=== PATIENT | female | born 1945 | race Caucasian/White ===

== ENCOUNTER 2016-10-29 09:12 | Emergency (ER) | payer MEDICARE, OTHER ==
[~2016-10-29] VITALS: Ht 157.5 cm; Wt 68.0 kg
[~2016-10-29 09:12] MED LIST: ATEN-51 PO
[2016-10-29 09:19] VITALS: Ht 157.5 cm; Wt 68.0 kg
[2016-10-29] MEDS ORDERED: CIPR7.5D4 LEFT EAR (09:57)
--- NOTE | 2016-10-29 10:45 | ERD ---
ER Documentation Chief Complaint Date/Time DATE: 10/29/16 TIME: 10:41 Chief Complaint PT WITH l EAR PAIN X 15 DAYS, NO FEVER. HPI 71-year-old female coming in complaining of left ear pain 2 weeks. Pain is constant. Denies fever. Has never had this before. Has not used any medications for the symptoms. Does not have any bleeding or drainage from her left ear. Denies nasal congestion. Medical history: Cardiac hypertrophy, hypertension NKDA Surgical history: Nasoplasty ROS All systems reviewed and are negative except as per history of present illness. Medications Home Meds Active Scripts Ciprofloxacin Hcl/Dexameth (Ciprodex Otic Suspension) 7.5 Ml Drops.susp, 4 DROP LEFT EAR BID for 7 Days, EA Prov:SADE ALTAMIRANO PA-C 10/29/16 Reported Medications Atenolol* (Atenolol*) 25 Mg Tablet, 25 MG PO DAILY 04/20/13 Allergies Allergies: Coded Allergies: No Known Allergy (Unverified , 10/29/16) PMhx/Soc History of Surgery: Yes (COLON SX, BTL, GALL BLADDER) Anesthesia Reaction: No Hx Neurological Disorder: No Hx Respiratory Disorders: No Hx Cardiac Disorders: No Hx Psychiatric Problems: No Hx Miscellaneous Medical Probl: No Hx Alcohol Use: No Hx Substance Use: No Hx Tobacco Use: No Smoking Status: Never smoker Physical Exam Vitals Vital Signs Date Time Temp Pulse Resp B/P Pulse Ox O2 Delivery O2 Flow Rate FiO2 10/29/16 09:19 97.5 70 14 160/72 99 Physical Exam GENERAL: The patient is well-appearing, well-nourished, in no acute distress HEENT: Atraumatic. Conjunctivae are pink. Pupils equal, round, and reactive to light. There is no scleral icterus. Tympanic membranes clear bilaterally. Oropharynx clear. No nystagmus or photophobia. Positive tragal tenderness. NECK: C-spine is soft and supple. There is no meningismus. There is no cervical lymphadenopathy. No JVD. No bruits. No goiter. CHEST: Clear to auscultation bilaterally. There are no rales, wheezes or rhonchi. HEART: Regular rate and rhythm. No murmurs, clicks, rubs or gallops. No S3 or S4. Procedures/MDM MDM: 71-year-old female complaining of left ear pain. Patient's exam is not concerning however she does have tragal tenderness. I have low treat for possible early otitis externa. I will suspicion for otitis media. I have low suspicion for mastoiditis. I have low suspicion for retained foreign body or perfect TM. Patient will be discharged with medication and recommended follow- up with primary doctor in 1-2 days for close evaluation. Patient still symptoms change or worsen to return to the ER. All the questions at the time of discharge Departure Diagnosis: Primary Impression: Left ear pain Condition: Stable Patient Instructions: Understanding Outer Ear Problems Referrals: YONIS ELLISON (PCP) Additional Instructions: FOLLOW UP WITH YOUR PRIMARY CARE PHYSICIAN TOMORROW.Return to this facility if you are not improving as expected. SADE ALTAMIRANO PA-C Oct 29, 2016 10:45
== END 2016-10-29 10:12 | disposition home or self-care (01) ==
LOC: FTE 09:12
DX: H92.02 Otalgia, left ear (principal); I10 Essential (primary) hypertension
CPT/HCPCS: 99283

== ENCOUNTER 2017-03-07 09:48 | Emergency (ER) | payer MEDICARE, OTHER ==
[~2017-03-07] VITALS: Ht 160 cm; Wt 69.0 kg
[~2017-03-07 09:48] MED LIST changes: +CIPR7.5D4 LEFT EAR
[2017-03-07 09:51] VITALS: Ht 160 cm; Wt 69.0 kg
[2017-03-07 11:23] LABS: URINE BLOOD (Dip) POC 2+ (NEGATIVE)
[2017-03-07] MEDS ORDERED: FAMOTIDINE 20 MG INJ IV STA (11:32)
[2017-03-07] MEDS ORDERED: METHYLPREDNISOLONE 125 MG INJ IV STA (11:32)
[2017-03-07] MEDS ORDERED: DIPHENHYDRAMINE 50 MG INJ IV STA (11:32)
[2017-03-07] MEDS ORDERED: BENZ30CR2 TP (11:38)
--- NOTE | 2017-03-07 11:45 | ERD ---
ER Documentation Chief Complaint Chief Complaint VAGINAL ITCHING X 3 DAYS HPI Patient is a 71-year-old female presents ED for concerns of vaginal dryness and itching 3 days. Patient reports bilateral labile itching and dryness. Patient denies using any new creams or products. She denies any vaginal bleeding or excessive vaginal discharge. Patient denies any dysuria, frequency , urgency or hematuria. Patient denies any flank pain or suprapubic pain. Patient denies any fevers, chills, nausea, vomiting, abdominal pain. She denies any chest pain, shortness of breath or LOC. ROS All systems reviewed and are negative except as per history of present illness. Medications Home Meds Active Scripts Benzocaine/Resorcinol (Vagisil Cream) 28 Gm Cream..g., 28 GM TP BID, #1 Prov:JUAN FRANCISCO LOZANO PA-C 03/07/17 Ciprofloxacin Hcl/Dexameth (Ciprodex Otic Suspension) 7.5 Ml Drops.susp, 4 DROP LEFT EAR BID for 7 Days, EA Prov:SADE ALTAMIRANO PA-C 10/29/16 Reported Medications Atenolol* (Atenolol*) 25 Mg Tablet, 25 MG PO DAILY 04/20/13 Allergies Allergies: Coded Allergies: No Known Allergy (Unverified , 03/07/17) PMhx/Soc History of Surgery: Yes (COLON SX, BTL, GALL BLADDER) Anesthesia Reaction: No Hx Neurological Disorder: No Hx Respiratory Disorders: No Hx Cardiac Disorders: No Hx Psychiatric Problems: No Hx Miscellaneous Medical Probl: No Hx Alcohol Use: No Hx Substance Use: No Hx Tobacco Use: No Smoking Status: Never smoker Physical Exam Vitals Vital Signs Date Time Temp Pulse Resp B/P Pulse Ox O2 Delivery O2 Flow Rate FiO2 03/07/17 09:51 98.3 64 18 145/77 98 Physical Exam GENERAL: Well-developed, well-nourished female. Appears in no acute distress. HEAD: Normocephalic, atraumatic. EYES: Pupils are equally reactive bilaterally. EOMs grossly intact. No conjunctival erythema. ENT: Moist mucous membranes. No uvula deviation. No kissing tonsils. NECK: Supple. No meningismus. Normal range of motion of the neck. LUNG: Clear to auscultation bilaterally. No rhonchi, wheezing, rales or coarse breath sounds. HEART: Regular rate and rhythm. No murmurs, rubs or gallops. ABDOMEN: Soft, nontender, and nondistended. Positive bowel sounds in all four quadrants. No rebound tenderness, no guarding. (-) McBurney's point tenderness. No CVA tenderness. FEMALE GENITALIA: Exam was completed with a mothercraft nurse present. Labial folds are erythematous and dry in appearance. No active bleeding or discharge noted. EXTREMITIES: Equal pulses bilaterally. No peripheral clubbing, cyanosis or edema. No unilateral leg swelling. NEUROLOGIC: Alert and oriented. Moving all four extremities without any difficulty. Normal speech. Steady gait. SKIN: Normal color. Warm and dry. No rashes or lesions. Results 24 hrs Laboratory Tests Test 03/07/17 11:24 Bedside Urine pH (LAB) 6.0 Bedside Urine Protein (LAB) Negative Bedside Urine Glucose (UA) Negative Bedside Urine Ketones (LAB) Negative Bedside Urine Blood 2+ Bedside Urine Nitrite (LAB) Negative Bedside Urine Leukocyte Esterase (L Trace Current Medications Medications (Trade) Dose Ordered Sig/Cielo Route PRN Reason Start Time Stop Time Status Last Admin Dose Admin Diphenhydramine HCl (Benadryl) 25 mg ONCE STAT IV 03/07/17 11:32 03/07/17 11:37 DC Famotidine (Pepcid Iv) 20 mg ONCE STAT IV 03/07/17 11:32 03/07/17 11:37 DC Methylprednisolone Sodium Succinate (Solu-Medrol) 125 mg ONCE STAT IV 03/07/17 11:32 03/07/17 11:37 DC Procedures/MDM MEDICAL DECISION MAKING: This is a 71-year-old female presents ED for concerns of vaginal dryness and itching 3 days. Vital signs were reviewed. Patient was afebrile. Patient is not diabetic. Physical exam findings did reveal labial erythema and dryness. Urine dip showed trace leukocyte esterase only. Given the patient denied any urinary symptoms at this time I will not treat the patient at this time. Patient will be given restriction for vaginocele. Patient was advised to follow -up with an [facility] an outpatient basis. At this time I believe that the patient 's vaginal dryness and itching are due to postmenopausal changes. The suspicion for necrotizing infection, sepsis, abscess, cellulitis, herpes zoster , irritant contact dermatitis, UTI, pyelonephritis, nephrolithiasis. PRESCRIPTIONS: Vagisil cream DISCHARGE: At this time, patient is stable for discharge and outpatient management. Patient was advised to follow-up with an [facility]. Referral information provided. I have advised the patient to avoid any new products, creams or possible allergens. I have advised the patient to avoid scratching the lesions. I have instructed the patient to follow-up with his/her primary care physician in 1-2 days. If symptoms persist, patient may need to see a funeral counselor for further examinations and testing. I have instructed the patient to promptly return to the ER at any time for any new or worsening symptoms including increased pain, fever, redness, swelling, warmth, difficulty breathing or vomiting. The patient and/or family expressed understanding of and agreement with this plan. All questions were answered. Home care instructions were provided. Disclaimer: Inadvertent spelling and grammatical errors are likely due to EHR/ dictation software use and do not reflect on the overall quality of patient care. Also, please note that the electronic time recorded on this note does not necessarily reflect the actual time of the patient encounter. Departure Diagnosis: Primary Impression: Menopausal vaginal dryness Condition: Stable Patient Instructions: Menopause: Effects of Low Estrogen Levels Referrals: YONIS ELLISON (PCP) [facility] YOU HAVE RECEIVED A MEDICAL SCREENING EXAM AND THE RESULTS INDICATE THAT YOU DO NOT HAVE A CONDITION THAT REQUIRES URGENT TREATMENT IN THE EMERGENCY DEPARTMENT. FURTHER EVALUATION AND TREATMENT OF YOUR CONDITION CAN WAIT UNTIL YOU ARE SEEN IN YOUR DOCTORS OFFICE WITHIN THE NEXT 1-2 DAYS. IT IS YOUR RESPONSIBILITY TO MAKE AN APPOINTMENT FOR FOLOW-UP CARE. IF YOU HAVE A PRIMARY DOCTOR --you should call your primary doctor and schedule an appointment IF YOU DO NOT HAVE A PRIMARY DOCTOR YOU CAN CALL OUR PHYSICIAN REFERRAL HOTLINE AT IF YOU CAN NOT AFFORD TO SEE A PHYSICIAN YOU CAN CHOSE FROM THE FOLLOWING [facility] [address] [place] [facility] [address] [facility] [facility] [address] [facility] [address] [facility] [address] [facility]. [facility] [address] [facility]. [facility] YOU HAVE RECEIVED A MEDICAL SCREENING EXAM AND THE RESULTS INDICATE THAT YOU DO NOT HAVE A CONDITION THAT REQUIRES URGENT TREATMENT IN THE EMERGENCY DEPARTMENT. FURTHER EVALUATION AND TREATMENT OF YOUR CONDITION CAN WAIT UNTIL YOU ARE SEEN IN YOUR DOCTORS OFFICE WITHIN THE NEXT 1-2 DAYS. IT IS YOUR RESPONSIBILITY TO MAKE AN APPOINTMENT FOR FOLOW-UP CARE. IF YOU HAVE A PRIMARY DOCTOR --you should call your primary doctor and schedule and appointment IF YOU DO NOT HAVE A PRIMARY DOCTOR YOU CAN CALL OUR PHYSICIAN REFERRAL HOTLINE AT . IF YOU CAN NOT AFFORD TO SEE A PHYSICIAN YOU CAN CHOSE FROM THE FOLLOWING [facility] INSTITUTIONS: [facility] [address] [place] [address] [facility] [address] [place] [address] [facility] [address] [place] [address] [facility] [employer] [address] [facility] [address] [place] [address] OFFICE FAX [facility] [address] [place], [place] [id number] [facility] [address] [place] [address] [address]AV[address], [facility] [address] [facility], [address] [facility] [address] [address] [place] [address] [facility] [address] [place], [place] [id number] [address] [facility] [address] - DAPHNE [address]ENDOZA [address], [facility] [address] [address], [place] [address] [facility]. [address], [facility] [address] [address] [address] [place] [address] Additional Instructions: Call your primary care doctor/ OBGYN TOMORROW for an appointment during the next 1-2 days.See the doctor sooner or return here if your condition worsens before your appointment time. JUAN FRANCISCO LOZANO PA-C Mar 07, 2017 11:45
== END 2017-03-07 12:02 | disposition home or self-care (01) ==
LOC: FTE 09:48
DX: N89.8 Other specified noninflammatory disorders of vagina (principal)
CPT/HCPCS: 81003; 99283